=== PATIENT | female | born 1935 | race Two or more races ===

== ENCOUNTER 2024-09-22 12:29 | Emergency (ER) | payer MEDICARE, OTHER ==
[~2024-09-22] VITALS: Ht 152.4 cm; Wt 53.2 kg
[2024-09-22 13:02] LABS: BASOPHILS # (AUTO) 0.1 X10'3 (0-0.2); BASOPHILS % (AUTO) 0.4 % (0-1); EOSINOPHILS # (AUTO) 0.4 X10'3 (0-0.9); HEMATOCRIT 41.5 % (35.0-45.0); HEMOGLOBIN 14.1 g/dl (12.0-16.0); LYMPHOCYTES # (AUTO) 3.2 X10'3 (1.1-4.8); LYMPHOCYTES % (AUTO) 24.3 % (21-51); MEAN CORPUSCULAR HEMOGLOBIN 31.4 PG (27.0-31.0); MEAN CORPUSCULAR VOLUME 92.5 FL (78-98); MEAN PLATELET VOLUME 7.7 FL (7.4-10.4); MONOCYTES # (AUTO) 0.6 X10'3 (0-0.9); MONOCYTES % (AUTO) 4.5 % (2-12); NEUTROPHILS % (AUTO) 67.8 % (42-75); PLATELET COUNT 285 X10'3 (140-440); RED BLOOD COUNT 4.49 X10'6 (4.20-5.60); RED CELL DISTRIBUTION WIDTH 13.9 % (11.5-14.5); WHITE BLOOD COUNT 13.3 X10'3 (4.5-11.0)
--- NOTE | 2024-09-22 13:19 | Physician Documentation ---
History of Present Illness ~ Chief Complaint: Head Injury Stated Complaint: FALL HEAD LAC NO THINNERS Time Seen by MD: 13:17 OK to notify your PCP?: Yes Mode of Arrival: Dropped Off HPI 89-year-old female presenting with a fall and head injury that occurred approximately an hour prior to arrival. The patient was sweeping and slipped and fell backwards hit the back of her head on the ground. She subsequently started bleeding. The states that patient did not lose consciousness but the patient appears slightly confused right now. There is a laceration on the back of the head which is bleeding. No signs of any other injuries. Tetanus within 5 years?: Yes Medication Reconciliation Allergies: Coded Allergies: No Known Allergies (Unverified , 09/22/24) Review of Systems All Other Systems at this time: Reviewed and Negative Physical Exam Vital Signs: Temperature: 98.3, Source: Temporal, Heart Rate: 81, Respiratory Rate: 16, BP: 185/83, Pulse Oximetry: 96, Weight: 53.180 Oxygen Flow Rate: 0 Physical Exam I have reviewed the triage vitals. CONST: Well developed and well nourished. In no acute distress HENT: There is a 3 cm laceration over the occiput which is bleeding. EYES: Pupils are equal, round and reactive to light. Normal conjunctiva NECK: Normal range of motion. Supple. CARDIO: Normal rate and regular rhythm. No murmurs, rubs, or gallops. S1, S2. PULM/CHEST: No respiratory distress. Lungs clear to auscultation. No wheeze ABD: Soft and nontender. Nondistended. Bowel sounds normal. No guarding. : Exam deferred MSK: No edema. No deformity. NEURO: Alert and oriented to person, place and time. Moving all extremities SKIN: Warm and dry. PSYCH: Normal mood and affect. Good eye contact. Procedures Laceration/Wound Repair Laceration/Wound Repair : Location: Occipital scalp Length (cm): 5 Anesthesia: Lidocaine w/ Epi Prep: irrigated by mayuri tena, scrubbed Irrigated w/ Saline (mls): 30 Undermining: none Foreign Body: not identified Wound Repaired With: elvis (10) Number of Superficial Sutures: 10 Dressing Applied: bacitracin, gauze Tolerated Procedure Well?: yes, no complications Progress Results/Orders Results/Orders Orders - CURT ZAMORA MD Ct Head (09/22/24 13:17) Ct Cervical Spine (09/22/24 13:17) Completed Orders - CURT ZAMORA MD Ct Head (09/22/24 13:17) Ct Cervical Spine (09/22/24 13:17) Cbc/Diff (09/22/24 12:43) CMP (09/22/24 12:43) Lidocaine 1% W/Epi 1:100,000 (Xylocaine (09/22/24 14:15) Bacitracin Ointment (Bacitracin Ointment (09/22/24 15:05) Bacitracin Ointment (Bacitracin Ointment (09/22/24 15:05) Vital Signs 09/22/24 09/22/24 09/22/24 09/22/24 12:33 12:48 12:54 13:20 Temp 98.3 Pulse 88 81 79 Resp 18 17 16 11 B/P (MAP) 139/73 185/83 (117) 188/86 (120) Pulse Ox 99 96 98 O2 Flow Rate 0 0 09/22/24 09/22/24 09/22/24 13:34 13:49 14:04 Pulse 80 77 82 Resp 11 10 14 B/P (MAP) 175/86 (115) 175/83 (113) 180/109 (132) Pulse Ox 98 98 95 O2 Flow Rate 0 0 0 Laboratory Tests Test 09/22/24 12:52 White Blood Count 13.3 H Red Blood Count 4.49 Hemoglobin 14.1 Hematocrit 41.5 Mean Corpuscular Volume 92.5 Mean Corpuscular Hemoglobin 31.4 H Mean Corpuscular Hemoglobin Concent 34.0 Red Cell Distribution Width 13.9 Platelet Count 285 Mean Platelet Volume 7.7 Neutrophils (%) (Auto) 67.8 Lymphocytes (%) (Auto) 24.3 Monocytes (%) (Auto) 4.5 Eosinophils (%) (Auto) 3.0 Basophils (%) (Auto) 0.4 Neutrophils # (Auto) 9.0 H Lymphocytes # (Auto) 3.2 Monocytes # (Auto) 0.6 Eosinophils # (Auto) 0.4 Basophils # (Auto) 0.1 CBC Comment Sodium Level 136 Potassium Level 3.5 Chloride Level 102 Carbon Dioxide Level 23.4 L Anion Gap 11 Blood Urea Nitrogen 23 H Creatinine 0.81 Estimated GFR/1.73 m2 67 BUN/Creatinine Ratio 28.4 H Glucose Level 157 H Calcium Level 9.3 Total Bilirubin 0.5 Aspartate Amino Transf (AST/SGOT) 26 Alanine Aminotransferase (ALT/SGPT) 36 Alkaline Phosphatase 109 Total Protein 7.1 Albumin 4.1 Globulin 3.0 Albumin/Globulin Ratio 1.4 Chemistry Comments EKG/XRAY/CT/US/VASC/MRI CT : Impression FINDINGS: CT HEAD: There is no acute intracranial hemorrhage or extraaxial fluid collection. No mass effect or midline shift. The ventricles and sulci are within normal limits in size for age. Basal cisterns are patent. There is an extra-axial calcified mass along the left parietal calvarium near the vertex measuring up to 1.3 x 1.0 cm, possible meningioma. There is a calcified tubular structure in the right middle cranial fossa near the greater wing of sphenoid, and adjacent to the right sylvian fissure, with associated metallic density, possibly associated with prior intervention. The calvarium is unremarkable. Mild mucosal thickening of the paranasal sinuses. CT CERVICAL SPINE: There is straightening of the normal cervical lordosis. Mild grade 1 anterolisthesis of C4 on C5. Minimal anterolisthesis of C7 on T1. Vertebral body heights are maintained. Posterior elements are intact. No evidence of acute fracture. Multilevel severe disc space narrowing with associated endplate sclerosis and endplate spurring. Multilevel facet and uncinate hypertrophy with areas of moderate neural foraminal stenosis. Prevertebral and paraspinal soft tissues are unremarkable. IMPRESSION: 1. No CT evidence of acute intracranial abnormality. 2. Calcified extra-axial mass along the left parietal calvarium near the vertex, possible calcified meningioma. Correlate with clinical findings. If clinically indicated, MRI without and with contrast could be obtained. 3. No evidence of acute fracture in the cervical spine. 4. 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 5. 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 6. Calcified structure in the right middle cranial fossa with associated small metallic components, likely sequelae of prior intervention. Medical Decision Making Additional Comment 89-year-old female presenting after a mechanical fall where she sustained a head injury as well as a occipital scalp laceration. Head CT of the head and neck was unremarkable for any acute bleed or other injuries. The laceration was repaired-please see procedure note. Patient's tetanus is up-to-date. Patient was informed about wound care and advised to return in two days for a wound check. She was also advised on potential concussive symptoms such as headaches, nausea, dizziness, vomiting. She was advised that should her symptoms sign ificantly worsened she is to return to the ED sooner. Otherwise return in two days for wound check and potentially 7-10 days for staple removal. Departure Disposition: HOME / SELF CARE / HOMELESS Impression: Primary Impression: Injury of head Additional Impressions: Laceration of head Fall Condition: Improved Discharge Instructions: Laceration Care, Adult Additional Instructions: 1. Keep wound clean and dry 2. Return to the ED in two days for a wound check 3. May take Tylenol as needed for pain Referrals: NO PRIMARY CARE PROVIDER (PCP) Signature Scribe Signature: 1 Attestation: 1 CURT ZAMORA MD Sep 22, 2024 13:19
[2024-09-22 13:30] LABS: ALANINE AMINOTRANSFERASE 36 U/L (12-78); ALBUMIN 4.1 G/DL (3.4-5.0); ALBUMIN/GLOBULIN RATIO 1.4 (1.1-1.5); ALKALINE PHOSPHATASE 109 IU/L (46-116); ANION GAP 11 (8-16); ASPARTATE AMINO TRANSFERASE 26 U/L (10-37); BILIRUBIN,TOTAL 0.5 MG/DL (0.1-1.0); BLOOD UREA NITROGEN 23 MG/DL (7-18); BUN/CREATININE RATIO 28.4 (10.0-20.0); CALCIUM 9.3 MG/DL (8.5-10.1); CHLORIDE 102 MMOL/L (99-107); CREATININE 0.81 MG/DL (0.40-0.90); GLUCOSE 157 MG/DL (70-104); POTASSIUM 3.5 MMOL/L (3.5-5.1); SODIUM 136 MMOL/L (135-145); TOTAL CARBON DIOXIDE 23.4 MMOL/L (24-32); TOTAL PROTEIN 7.1 G/DL (6.4-8.2); eCRCL 35 ML/MIN; eGFR 67 ML/MIN
--- NOTE | 2024-09-22 13:44 | RADIOLOGY REPORT ---
CLINICAL INFORMATION: Fall injury. TECHNIQUE: Axial imaging was obtained through the brain without contrast. Axial CT imaging of the ce rvical spine was also obtained without contrast. Coronal and sagittal reformatted images were obtaine d, reviewed, and stored. One or more of the following dose reduction techniques were used: Automated exposure control. Adjustment of mA and/or kV according to patient size. CTDIvol = 70.95, 0.07, 0.07, 17.03, 0.27, 0.07 mGy DLP = 1302.32, 378.65 mGy-cm COMPARISON: None FINDINGS: CT HEAD: There is no acute intracranial hemorrhage or extraaxial fluid collection. No mass effect or midline shift. The ventricles and sulci are within normal limits in size for age. Basal cisterns are patent. There is an extra-axial calcified mass along the left parietal calvarium near the vertex me asuring up to 1.3 x 1.0 cm, possible meningioma. There is a calcified tubular structure in the right middle cranial fossa near the greater wing of sphenoid, and adjacent to the right sylvian fissure, wi th associated metallic density, possibly associated with prior intervention. The calvarium is unrem arkable. Mild mucosal thickening of the paranasal sinuses. CT CERVICAL SPINE: There is straightening of the normal cervical lordosis. Mild grade 1 anterolisthe sis of C4 on C5. Minimal anterolisthesis of C7 on T1. Vertebral body heights are maintained. Posterio r elements are intact. No evidence of acute fracture. Multilevel severe disc space narrowing with ass ociated endplate sclerosis and endplate spurring. Multilevel facet and uncinate hypertrophy with area s of moderate neural foraminal stenosis. Prevertebral and paraspinal soft tissues are unremarkable. IMPRESSION: 1. No CT evidence of acute intracranial abnormality. 2. Calcified extra-axial mass along the left parietal calvarium near the vertex, possible calcified m eningioma. Correlate with clinical findings. If clinically indicated, MRI without and with contrast c ould be obtained. 3. No evidence of acute fracture in the cervical spine. 4. 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 5. 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 6. Calcified structure in the right middle cranial fossa with associated small metallic components, l ikely sequelae of prior intervention.
[2024-09-22] MEDS: LIDOcaine 1% W/epiNEPHrine 1:100,000 20ml vial SQ ONE (14:21)
[2024-09-22] MEDS: bacitracin 15gm ointment TP ONE ×2 (15:12→15:17)
[2024-09-22 15:28] VITALS: BP 149/76; PULSE 84; RESP 20; TEMP 98.3; O2SAT 96
== END 2024-09-22 15:25 | disposition home or self-care (01) ==
LOC: ER 12:31
DX: S01.01XA Laceration without foreign body of scalp, initial encounter (principal); S09.90XA Unspecified injury of head, initial encounter; W01.0XXA Fall on same level from slipping, tripping and stumbling without subsequent striking against object, initial encounter; Y93.89 Activity, other specified; Y92.89 Other specified places as the place of occurrence of the external cause; Y99.8 Other external cause status
CPT/HCPCS: 12002; 36415; 70450; 72125; 80053; 85025; 99285; A6258; A6402; A6446; A6449; L0172; Z7610

== ENCOUNTER 2024-09-24 11:11 | Emergency (ER) | payer MEDICARE, OTHER ==
[~2024-09-24] VITALS: Ht 152.4 cm; Wt 51.8 kg
[2024-09-24 11:12] VITALS: BP 146/53; PULSE 72; RESP 16; O2SAT 98
--- NOTE | 2024-09-24 12:18 | Physician Documentation ---
History of Present Illness ~ Chief Complaint: Wound Re-Check Stated Complaint: WOUND RECHECK Time Seen by MD: 12:13 HPI This 89-year-old female presents for wound check of a laceration to the posterior scalp sustained after a slip and fall two days prior, patient had elvis placed in ED at that time. Patient reports no concerns and reports no increased pain, swelling, or discharge from the wound and reports no fever chills or other systemic symptoms. Patient reports she feels otherwise well. Tetanus within 5 years?: Yes Medication Reconciliation Allergies: Coded Allergies: No Known Allergies (Unverified , 09/22/24) Review of Systems ROS Wound recheck laceration to posterior scalp as stated above in the HPI, otherwise all systems are reviewed and negative. Physical Exam Vital Signs: Temperature: 98.0, Source: Temporal, Heart Rate: 72, Respiratory Rate: 16, BP: 146/53, Pulse Oximetry: 98, Weight: 51.820 Oxygen Flow Rate: 0 Physical Exam VITALS: Reviewed and as above. GENERAL: Alert, nontoxic appearing, no apparent distress. HEENT: Well healing, well approximated stapled wound to the posterior scalp, [address], wound approximately 5 cm RESPIRATORY: No increased work of breathing, no respiratory distress, speaking in full clear sentences Progress Results/Orders Results/Orders Vital Signs 09/24/24 09/24/24 11:12 12:23 Temp 98.0 98.0 Pulse 72 Resp 16 B/P (MAP) 146/53 Pulse Ox 98 O2 Flow Rate 0 Medical Decision Making Findings This 79-year-old female presented for wound recheck as a 5 cm laceration to her posterior scalp that was stapled two days prior, the wound appears to be healing well without complications and no signs of infection. Patient reports that she was feeling otherwise well reporting no mental status changes, no fever, no increased pain. Remainder of physical exam was benign and vital signs are stable patient is appropriate for outpatient follow up for wound rechecked in five days and staple removal. Patient provided return to care precautions which she and her significant other verbalized understanding of. Differential Dx:Considerations: Include: Abscess, Cellulitis, Healing wound, Other (Wound infection, closed head injury) Departure Disposition: 01 HOME / SELF CARE / HOMELESS Impression: Primary Impression: Wound Condition: Improved Additional Instructions: The wound appears to be healing very well. Keep the area clean and dry. Please return to your choice of medical provider (an urgent care, primary care, or return to the emergency department) in five days for wound recheck and possible staple removal. Please return to the emergency department for any new or worsening concerning symptoms including signs of infection such as increased pain or swelling to the area, discharge from the area, or if you develop a fever. Referrals: NO PRIMARY CARE PROVIDER (PCP) Education Educated: Patient, Family Educated regarding: diagnosis, treatment, prognosis, need for follow up Signature Scribe Signature: No scribe Attestation: The note accurately reflects work and decisions made by me.EVELIA Burdick 09/24/24 20:49 ERIC SELBY September 24, 2024 12:18
[2024-09-24 12:23] VITALS: TEMP 98
== END 2024-09-24 12:34 | disposition home or self-care (01) ==
LOC: ER 11:12
DX: S01.01XD Laceration without foreign body of scalp, subsequent encounter (principal); X58.XXXD Exposure to other specified factors, subsequent encounter
CPT/HCPCS: 99281